=== PATIENT | female | born 1970 | race Caucasian/White ===

== ENCOUNTER 2017-03-10 15:32 | Emergency (ER) | payer MEDICAID ==
[~2017-03-10] VITALS: Ht 157.5 cm; Wt 89.0 kg
[~2017-03-10 15:32] MED LIST: ACET500C5 PO; BISM262O23 PO; CYCL5TAB PO; FIORICET PO; HYDR-906 PO; IBUP400T22 PO; NYST15CR16 TOP; ONDA4TAB14 PO
[2017-03-10 15:52] VITALS: Ht 157.5 cm; Wt 89.0 kg
[2017-03-10] MEDS ORDERED: SOD CHLORIDE 0.9% 1,000 ML IV STA (17:31)
[2017-03-10] MEDS ORDERED: ONDANSETRON 4 MG INJ IV STA (17:31)
[2017-03-10] MEDS ORDERED: morphine 4 MG/ML VIAL IV STA (17:31)
[2017-03-10 18:08] LABS: ADD SCAN DIFF NO
[2017-03-10 18:10] LABS: BASOPHIL # 0.1 10^3/ul (0.0-0.1); BASOPHILS % 0.5 % (0.0-2.0); EOSINOPHILS # 0.1 10^3/ul (0.0-0.5); EOSINOPHILS % 0.8 % (0.0-7.0); HEMATOCRIT 35.7 % (37.0-47.0); HEMOGLOBIN 10.5 g/dl (12.0-16.0); LYMPHOCYTES # 2.1 10^3/ul (0.8-2.9); LYMPHOCYTES % 20.1 % (15.0-51.0); MEAN CORPUSCULAR HEMOGLOBIN 21.7 pg (29.0-33.0); MEAN CORPUSCULAR HGB CONC 29.4 g/dl (32.0-37.0); MEAN CORPUSCULAR VOLUME 73.9 fl (82.0-101.0); MEAN PLATELET VOLUME 9.9 fl (7.4-10.4); MONOCYTE # 0.6 10^3/ul (0.3-0.9); MONOCYTES % 6.2 % (0.0-11.0); NEUTROPHIL # 7.4 10^3/ul (1.6-7.5); NEUTROPHILS % 71.8 % (39.0-77.0); PLATELET COUNT 433 10^3/UL (140-415); RED BLOOD COUNT 4.83 10^6/ul (4.20-5.40); RED CELL DISTRIBUTION WIDTH 16.7 % (11.5-14.5); WHITE BLOOD COUNT 10.3 10^3/ul (4.8-10.8)
[2017-03-10 18:13] LABS: ADD UMIC YES; URINE BILIRUBIN (Dip) NEGATIVE (NEGATIVE); URINE BLOOD (Dip) NEGATIVE (NEGATIVE); URINE COLOR YELLOW (YELLOW); URINE GLUCOSE (Dip) NEGATIVE (NEGATIVE); URINE KETONES (Dip) NEGATIVE (NEGATIVE); URINE LEUKOCYTE ESTERASE (Dip) NEGATIVE (NEGATIVE); URINE NITRITE (Dip) NEGATIVE (NEGATIVE); URINE TOTAL PROTEIN (Dip) TRACE (NEGATIVE); URINE UROBILINOGEN (Dip) 0.2 E.U./dL (0.1-1.0)
[2017-03-10 18:23] LABS: SQUAMOUS EPITHELIAL CELL,UR MANY; URINE RBCS 0-2 /HPF (0)
[2017-03-10 18:24] LABS: BACTERIA,URINE MODERATE
[2017-03-10 18:31] LABS: ALBUMIN 4.7 g/dl (3.3-4.9); ALBUMIN/GLOBULIN RATIO 1.51; BILIRUBIN,INDIRECT 0.2 mg/dl (0-1.1); BILIRUBIN,TOTAL 0.2 mg/dl (0.2-1.3); CREATININE 0.57 mg/dl (0.44-1.00); POTASSIUM 3.9 mmol/L (3.5-5.1); TOTAL PROTEIN 7.8 g/dl (6.1-8.1)
--- NOTE | 2017-03-10 18:36 | ERD ---
ER Documentation Chief Complaint Date/Time DATE: 03/10/17 TIME: 18:35 Chief Complaint EPIGASTRIC PAIN X 3 DAYS HPI This is a 46-year-old female with a history of cholelithiasis presenting to the emergency room complaining of epigastric pain for the past 3 days. Patient states that it is progressively getting worse and she rates it moderate to severe. She states that she has had a couple episodes of vomiting. She denies any diarrhea, fevers, hematemesis. Patient denies any abdominal surgeries. No medications have been taken ROS All systems reviewed and are negative except as per history of present illness. Medications Home Meds Active Scripts Ondansetron (Ondansetron Odt) 4 Mg Tab.rapdis, 4 MG PO Q6H Y for NAUSEA AND/OR VOMITING, #14 TAB Prov:DEEPTI GOMEZ PA-C 03/10/17 Ibuprofen* (Motrin*) 600 Mg Tab, 600 MG PO Q6H Y for PAIN AND OR ELEVATED TEMP, #30 TAB Prov:DEEPTI GOMEZ PA-C 03/10/17 Ondansetron (Ondansetron Odt) 4 Mg Tab.rapdis, 4 MG PO Q8 Y for NAUSEA AND/OR VOMITING, #30 TAB Prov:ZANE FENG NP 08/05/16 Hydrocodone/Acetaminophen (Morrison 5-325 Tablet) 1 Each Tablet, 1 EACH PO Q6, #20 TAB Prov:ZANE FENG NP 08/05/16 Acetamin/Butalbital/Caffeine* (Fioricet*) 1 Tab Tab, 1 TAB PO Q4H Y for PAIN LEVEL 1-5, #30 TAB Prov:IVANA CANAS PA-C 05/08/16 Acetaminophen* (Tylophen*) 500 Mg Capsule, 1 CAP PO Q6H Y for PAIN AND OR ELEVATED TEMP, #20 CAP 0 Refills Prov:ZULEMA CHRISTOPHER PA-C 12/29/15 Ibuprofen* (Motrin*) 400 Mg Tab, 400 MG PO Q6H Y for PAIN AND OR ELEVATED TEMP, #30 TAB 0 Refills Prov:ZULEMA CHRISTOPHER PA-C 12/29/15 Bismuth Subsalicylate* (Pepto-Bismol*) 262 Mg/15 Ml Oral.susp, 30 ML PO Q6H Y for PAIN, #240 ML 0 Refills Prov:ZULEMA CHRISTOPHER PA-C 12/29/15 Nystatin-Triamcinolone* (Nystatin-Triamcinolone* Cream) 15 Gm Cream.gm., 1 APPLIC TOP BID, #1 TUB Prov:CHACORTA MAYER PA-C 11/22/15 Cyclobenzaprine Hcl* (Cyclobenzaprine Hcl*) 5 Mg Tablet, 5 MG PO QHS for 10 Days , TAB Prov:TRUPTI CHRISTIANSON PA-C 08/31/15 Allergies Allergies: Coded Allergies: No Known Allergy (Unverified , 01/26/15) PMhx/Soc History of Surgery: Yes (C-SECTIONx 2) Anesthesia Reaction: No Hx Neurological Disorder: No Hx Respiratory Disorders: No Hx Cardiac Disorders: No Hx Psychiatric Problems: No Hx Alcohol Use: No Hx Substance Use: No Hx Tobacco Use: No Smoking Status: Never smoker Physical Exam Vitals Vital Signs Date Time Temp Pulse Resp B/P Pulse Ox O2 Delivery O2 Flow Rate FiO2 03/10/17 15:52 98.3 99 18 125/75 99 Physical Exam GENERAL: well-developed/well-nourished, in no apparent distress, non-toxic appearing HENT: NC/AT, moist mucous membranes EYES: Conjunctiva normal NECK: Supple, no lymphadenopathy PULM: CTA bilaterally, no rales, rhonchi, or wheezing heard CV: Normal S1S2, RRR, good capillary refill GI: Soft, non-distended, tender to palpation epigastric region Normal bowel sounds, no masses or organomegaly felt on exam No gross peritonitis, no bruits Negative Rovsing, negative Scales, negative McBurney's point, Negative CVAT BACK: No masses EXT: No clubbing, cyanosis, or edema NEURO: Alert and Orientated SKIN: Intact, normal turgor PSYCH: Normal mood and mentation Result Diagram: 03/10/17 1730 03/10/17 1730 Results 24 hrs Laboratory Tests Test 03/10/17 17:30 03/10/17 17:46 White Blood Count 10.310^3/ul Red Blood Count 4.8310^6/ul Hemoglobin 10.5g/dl Hematocrit 35.7% Mean Corpuscular Volume 73.9fl Mean Corpuscular Hemoglobin 21.7pg Mean Corpuscular Hemoglobin Concent 29.4g/dl Red Cell Distribution Width 16.7% Platelet Count 00186^3/UL Mean Platelet Volume 9.9fl Neutrophils % 71.8% Lymphocytes % 20.1% Monocytes % 6.2% Eosinophils % 0.8% Basophils % 0.5% Nucleated Red Blood Cells % 0.0/100WBC Neutrophils # 7.410^3/ul Lymphocytes # 2.110^3/ul Monocytes # 0.610^3/ul Eosinophils # 0.110^3/ul Basophils # 0.110^3/ul Nucleated Red Blood Cells # 0.010^3/ul Sodium Level 140mmol/L Potassium Level 3.9mmol/L Chloride Level 106mmol/L Carbon Dioxide Level 27mmol/L Anion Gap 11 Blood Urea Nitrogen 17mg/dl Creatinine 0.57mg/dl Glucose Level 103mg/dl Calcium Level 9.0mg/dl Total Bilirubin 0.2mg/dl Direct Bilirubin 0.00mg/dl Indirect Bilirubin 0.2mg/dl Aspartate Amino Transf (AST/SGOT) 28IU/L Alanine Aminotransferase (ALT/SGPT) 35IU/L Alkaline Phosphatase 137IU/L Total Protein 7.8g/dl Albumin 4.7g/dl Globulin 3.10g/dl Albumin/Globulin Ratio 1.51 Lipase 85U/L Urine Color YELLOW Urine Clarity SLIGHTLY CLOUDY Urine pH 6.0 Urine Specific [place] 1.025 Urine Ketones NEGATIVE Urine Nitrite NEGATIVE Urine Bilirubin NEGATIVE Urine Urobilinogen 0.2 E.U./dL Urine Leukocyte Esterase NEGATIVE Urine Microscopic RBC 0-2/HPF Urine Microscopic WBC 0-2/HPF Urine Squamous Epithelial Cells MANY Urine Bacteria MODERATE Urine Hemoglobin NEGATIVE Urine Glucose NEGATIVE% Urine Total Protein TRACE Current Medications Medications (Trade) Dose Ordered Sig/Ramonita Route PRN Reason Start Time Stop Time Status Last Admin Dose Admin Sodium Chloride (NS) 1,000 ml @ 1,000 mls/hr Q1H STAT IV 03/10/17 17:31 03/10/17 18:30 DC 03/10/17 17:50 Morphine Sulfate (morphine) 4 mg ONCE STAT IV 03/10/17 17:31 03/10/17 17:32 DC 03/10/17 17:49 Ondansetron HCl (Zofran Inj) 4 mg ONCE STAT IV 03/10/17 17:31 5/30/17 17:32 DC 03/10/17 17:49 Procedures/MDM This is a 46-year-old female with a history of cholelithiasis presenting to the emergency room complaining of epigastric pain, nausea and couple episodes of vomiting for the past 3 days likely due to cholelithiasis and fatty liver. [I doubt patient has sepsis, choledocholithiasis, cholecystitis or cholangitis, pancreatitis or other acute abdomen conditions due to physical examination and diagnostic testing. Patient appears well and nontoxic appearing with stable vital signs. She is able to be discharged home with precautions to return Lab work was drawn. CBC did not show any evidence of leukocytosis or anemia. CMP did not show any evidence of renal, liver, or electrolyte abnormalities. Lipase was normal. UA did not show any evidence of hemoglobin or urinary tract infection. Gallbladder US: 1. Increased echogenicity of the liver is noted and most commonly as a result of fatty infiltration. Steatohepatitis, vacuolar degeneration and cirrhosis of the liver are other causes. 2. Cholelithiasis with gallstones identified in the body and neck of the gallbladder. Diagnostic testing and instructions were given to patient. Pain control and antiemetic prescriptions were provided for outpatient self-care. Discussed with patient to follow-up with primary care for GI referral. Precautions were given to return to the ER for fever, intractable pain, increased vomiting, and other worsening signs and symptoms. Patient expressed agreement and understanding of this plan.] Departure Diagnosis: Primary Impression: Cholelithiasis Cholelithiasis location: gallbladder Cholecystitis presence: without cholecystitis Biliary obstruction: without biliary obstruction Qualified Code : K80.20 - Calculus of gallbladder without cholecystitis without obstruction Additional Impression: Fatty liver Condition: DEEPTI Hernandez PA-C March 10, 2017 18:36
--- NOTE | 2017-03-10 19:07 | RADRPT ---
PROCEDURE: US Abdomen. CLINICAL INDICATION: Abdominal pain. TECHNIQUE: Multiple real-time images were acquired of the patient's abdomen and retroperitoneum ut ilizing a high resolution transducer. COMPARISON: No. FINDINGS: The visible portions of the pancreas are unremarkable but the tail the pancreas is obscured by bowel gas. The liver is echogenic and enlarged measuring 17 cm sagittal. The hepatic and portal veins are hill nt. The gallbladder contains a large gallstone measuring 2.3 cm. There are additional smaller galls tones. The gallbladder wall measures 5.5 mm. The common bile duct measures 3.6 mm. The right kidney measures 10.1 cm in length. There is no evidence of mass or hydronephrosis. IMPRESSION: 1. Increased echogenicity of the liver is noted and most commonly as a result of fatty infiltration. Steatohepatitis, vacuolar degeneration and cirrhosis of the liver are other causes. 2. Cholelithiasis with gallstones identified in the body and neck of the gallbladder. RPTAT:AAJJ Physician Terrence Date Time Electronically viewed and signed by Physician Terrence on 03/10/2017 19:07 KIMBERLEY/
[2017-03-10] MEDS ORDERED: IBUP-1542 PO (19:12)
[2017-03-10] MEDS ORDERED: ONDA4TAB14 PO (19:12)
[2017-03-10] MEDS ORDERED: morphine 10 MG INJ IV ONE (19:30)
[2017-03-10 20:41] VITALS: BP 115/59; PULSE 80; RESP 16
== END 2017-03-10 20:42 | disposition home or self-care (01) ==
LOC: FTE 15:32
DX: K80.20 Calculus of gallbladder without cholecystitis without obstruction (principal); K76.0 Fatty (change of) liver, not elsewhere classified; R11.10 Vomiting, unspecified
CPT/HCPCS: 36415; 76705; 80053; 81001; 83690; 85025; 96374; 96375; 96376; J2270; J2405; J7030; Z7502

== ENCOUNTER 2017-04-17 15:19 | Emergency (ER) | payer SELFPAY ==
[~2017-04-17] VITALS: Ht 154.9 cm; Wt 98.0 kg
[~2017-04-17 15:19] MED LIST changes: +IBUP-1542 PO
[2017-04-17 15:22] VITALS: Ht 154.9 cm; Wt 98.0 kg
[2017-04-17] MEDS ORDERED: SOD CHLORIDE 0.9% 1,000 ML IV STA (15:29)
[2017-04-17] MEDS ORDERED: ONDANSETRON 4 MG INJ IV STA (15:29)
[2017-04-17] MEDS ORDERED: DICYCLOMINE 10 MG CAP PO ONE (15:30)
[2017-04-17 15:56] LABS: ADD SCAN DIFF NO
[2017-04-17 15:57] LABS: ABNORMAL IP MESSAGE 1; BASOPHIL # 0.1 10^3/ul (0.0-0.1); BASOPHILS % 0.9 % (0.0-2.0); EOSINOPHILS # 0.2 10^3/ul (0.0-0.5); EOSINOPHILS % 1.7 % (0.0-7.0); HEMATOCRIT 32.2 % (37.0-47.0); HEMOGLOBIN 9.3 g/dl (12.0-16.0); LYMPHOCYTES # 3.2 10^3/ul (0.8-2.9); LYMPHOCYTES % 34.2 % (15.0-51.0); MEAN CORPUSCULAR HEMOGLOBIN 21.6 pg (29.0-33.0); MEAN CORPUSCULAR HGB CONC 28.9 g/dl (32.0-37.0); MEAN CORPUSCULAR VOLUME 74.9 fl (82.0-101.0); MEAN PLATELET VOLUME 9.5 fl (7.4-10.4); MONOCYTE # 0.7 10^3/ul (0.3-0.9); MONOCYTES % 7.8 % (0.0-11.0); NEUTROPHIL # 5.1 10^3/ul (1.6-7.5); NEUTROPHILS % 54.9 % (39.0-77.0); PLATELET COUNT 411 10^3/UL (140-415); RED CELL DISTRIBUTION WIDTH 20.8 % (11.5-14.5); WHITE BLOOD COUNT 9.3 10^3/ul (4.8-10.8)
[2017-04-17 16:17] LABS: ALBUMIN 4.9 g/dl (3.3-4.9); ALBUMIN/GLOBULIN RATIO 1.63; BILIRUBIN,INDIRECT 0.1 mg/dl (0-1.1); BILIRUBIN,TOTAL 0.1 mg/dl (0.2-1.3); CALCIUM 9.3 mg/dl (8.4-10.2); CREATININE 0.8 mg/dl (0.44-1.00); POTASSIUM 3.9 mmol/L (3.5-5.1); TOTAL PROTEIN 7.9 g/dl (6.1-8.1)
--- NOTE | 2017-04-17 16:17 | RADRPT ---
PROCEDURE: Right Upper Quadrant Ultrasound. CLINICAL INDICATION: Abdominal Pain TECHNIQUE: Multiple real-time images were acquired of the patient's right upper quadrant abdomen a nd retroperitoneum utilizing a high resolution transducer. COMPARISON: Gallbladder ultrasound from 03/10/2017 FINDINGS: The liver measures 14.7 cm, and demonstrates diffuse increased echogenicity. The main portal vein is patent with proper directional flow. There is no intrahepatic biliary ductal dilatation. The extrah epatic common bile duct measures 6 mm. There is cholelithiasis. There is mild nonspecific gallbladder wall thickening which is likely at l east in part due to underdistension. There is no pericholecystic fluid. The pancreas is not visualized. The right kidney measures 11.6 cm and demonstrates normal echotexture. There is no right renal calcu marylu or hydronephrosis. The visualized abdominal aorta and IVC are grossly unremarkable. IMPRESSION: Severe fatty infiltration of the liver. There is cholelithiasis. The gallbladder is contracted which limits evaluation for wall thickening. Acute cholecystitis is considered unlikely. The CBD is top - normal. Clinical correlation is rec ommended. RPTAT: EE Physician Ni Date Time Electronically viewed and signed by Physician Ni on 04/17/2017 16:17 /
[2017-04-17] MEDS ORDERED: morphine 4 MG/ML VIAL IV STA (16:32)
[2017-04-17 17:14] LABS: ADD UMIC NO; UR ASCORBIC ACID NEGATIVE (NEGATIVE); UR BILIRUBIN (Dip) NEGATIVE (NEGATIVE); UR BLOOD (Dip) NEGATIVE (NEGATIVE); UR CLARITY CLEAR (CLEAR); UR COLOR YELLOW (YELLOW); UR GLUCOSE (Dip) NEGATIVE (NEGATIVE); UR KETONES (Dip) NEGATIVE (NEGATIVE); UR LEUKOCYTE ESTERASE (Dip) NEGATIVE Leu/ul (NEGATIVE); UR NITRITE (Dip) NEGATIVE (NEGATIVE); UR SPECIFIC GRAVITY (Dip) 1.018 (1.003-1.030); UR TOTAL PROTEIN (Dip) NEGATIVE (NEGATIVE); UR UROBILINOGEN (Dip) NEGATIVE (NEGATIVE)
[2017-04-17] MEDS ORDERED: HYDR-906 PO (17:41)
--- NOTE | 2017-04-17 18:01 | ERD ---
ER Documentation Chief Complaint Date/Time DATE: 04/17/17 TIME: 17:57 Chief Complaint 07/21 abd pain x today HX of gallstones HPI 46-year-old female patient with a past medical history of fibromyalgia and cholelithiasis presents to the ED complaining of epigastric and right upper quadrant abdominal pain that started 3 days ago. Reports that she was here in February for the same pain. States that she has a headache from the pain of her abdomen. Reports that she has had a few episodes of nonbilious nonbloody vomiting. Patient describes pain as sharp and rates it a 10 out of 10. Denies any diarrhea, chest pain, wheezing, fever, cough, constipation, melena, hemoptysis, hematemesis. States that she has an appointment with her general surgeon on May 05, 2017 for surgical evaluation. ROS All systems reviewed and are negative except as per history of present illness. Medications Home Meds Active Scripts Hydrocodone/Acetaminophen (Tyler 5-325 Tablet) 1 Each Tablet, 1 TAB PO QHS Y for PAIN, #14 TAB Prov:VINNY FITZGERALD PA-C 04/17/17 Ondansetron (Ondansetron Odt) 4 Mg Tab.rapdis, 4 MG PO Q6H Y for NAUSEA AND/OR VOMITING, #14 TAB Prov:DEEPTI GOMEZ PA-C 03/10/17 Ibuprofen* (Motrin*) 600 Mg Tab, 600 MG PO Q6H Y for PAIN AND OR ELEVATED TEMP, #30 TAB Prov:DEEPTI GOMEZ PA-C 03/10/17 Ondansetron (Ondansetron Odt) 4 Mg Tab.rapdis, 4 MG PO Q8 Y for NAUSEA AND/OR VOMITING, #30 TAB Prov:ZANE FENG NP 08/05/16 Hydrocodone/Acetaminophen (Tyler 5-325 Tablet) 1 Each Tablet, 1 EACH PO Q6, #20 TAB Prov:ZANE FENG NP 08/05/16 Acetamin/Butalbital/Caffeine* (Fioricet*) 1 Tab Tab, 1 TAB PO Q4H Y for PAIN LEVEL 1-5, #30 TAB Prov:IVANA CANAS PA-C 05/08/16 Acetaminophen* (Tylophen*) 500 Mg Capsule, 1 CAP PO Q6H Y for PAIN AND OR ELEVATED TEMP, #20 CAP 0 Refills Prov:ZULEMA CHRISTOPHER PA-C 12/29/15 Ibuprofen* (Motrin*) 400 Mg Tab, 400 MG PO Q6H Y for PAIN AND OR ELEVATED TEMP, #30 TAB 0 Refills Prov:ZULEMA CHRISTOPHER PA-C 12/29/15 Bismuth Subsalicylate* (Pepto-Bismol*) 262 Mg/15 Ml Oral.susp, 30 ML PO Q6H Y for PAIN, #240 ML 0 Refills Prov:ZULEMA CHRISTOPHER PA-C 12/29/15 Nystatin-Triamcinolone* (Nystatin-Triamcinolone* Cream) 15 Gm Cream.gm., 1 APPLIC TOP BID, #1 TUB Prov:CHACORTA MAYER PA-C 11/22/15 Cyclobenzaprine Hcl* (Cyclobenzaprine Hcl*) 5 Mg Tablet, 5 MG PO QHS for 10 Days , TAB Prov:TRUPTI CHRISTIANSON PA-C 08/31/15 Allergies Allergies: Coded Allergies: No Known Allergy (Unverified , 04/17/17) PMhx/Soc History of Surgery: Yes (C-SECTIONx 2) Anesthesia Reaction: No Hx Neurological Disorder: No Hx Respiratory Disorders: No Hx Cardiac Disorders: No Hx Psychiatric Problems: No Hx Alcohol Use: No Hx Substance Use: No Hx Tobacco Use: No Smoking Status: Never smoker Physical Exam Vitals Vital Signs Date Time Temp Pulse Resp B/P Pulse Ox O2 Delivery O2 Flow Rate FiO2 04/17/17 15:22 98.6 105 18 131/82 99 Physical Exam Const: [id number], well-nourished. In no acute distress. Head: Atraumatic, normocephalic Eyes: Normal Conjunctiva without injection. No purulent discharge. ENT: Normal external ear, nose. Moist oropharynx without tonsillar exudates. Non -erythematous pharynx. Uvula midline. No drooling. No trismus. Neck: No cervical midline tenderness. Full range of motion. No meningismus. No cervical lymphadenopathy. No JVD. Resp: Clear to auscultation bilaterally. No wheezing, rhonchi, rales, or crackles. No accessory muscle use. No retractions. Cardio: Regular rate and rhythm. No murmurs, rubs or gallops. Abd: Soft, epigastric and right upper quadrant tenderness, non distended. Normal bowel sounds. No palpable masses. No rebound tenderness. No guarding. Negative McBurney's point. Negative psoas sign. Negative obturator sign. Skin: No petechiae or rashes Back: No midline tenderness. No CVA tenderness. Ext: No cyanosis, or edema. Neur: Awake and alert. Normal gait. Normal coordination. Psych: Normal Mood and Affect Results 24 hrs Laboratory Tests Test 04/17/17 15:45 04/17/17 16:55 White Blood Count 9.310^3/ul Red Blood Count 4.3010^6/ul Hemoglobin 9.3g/dl Hematocrit 32.2% Mean Corpuscular Volume 74.9fl Mean Corpuscular Hemoglobin 21.6pg Mean Corpuscular Hemoglobin Concent 28.9g/dl Red Cell Distribution Width 20.8% Platelet Count 00307^3/UL Mean Platelet Volume 9.5fl Neutrophils % 54.9% Lymphocytes % 34.2% Monocytes % 7.8% Eosinophils % 1.7% Basophils % 0.9% Nucleated Red Blood Cells % 0.0/100WBC Neutrophils # 5.110^3/ul Lymphocytes # 3.210^3/ul Monocytes # 0.710^3/ul Eosinophils # 0.210^3/ul Basophils # 0.110^3/ul Nucleated Red Blood Cells # 0.010^3/ul Sodium Level 140mmol/L Potassium Level 3.9mmol/L Chloride Level 105mmol/L Carbon Dioxide Level 24mmol/L Anion Gap 15 Blood Urea Nitrogen 12mg/dl Creatinine 0.80mg/dl Glucose Level 97mg/dl Calcium Level 9.3mg/dl Total Bilirubin 0.1mg/dl Direct Bilirubin 0.00mg/dl Indirect Bilirubin 0.1mg/dl Aspartate Amino Transf (AST/SGOT) 39IU/L Alanine Aminotransferase (ALT/SGPT) 48IU/L Alkaline Phosphatase 139IU/L Total Protein 7.9g/dl Albumin 4.9g/dl Globulin 3.00g/dl Albumin/Globulin Ratio 1.63 Lipase 101U/L Urine Color YELLOW Urine Clarity CLEAR Urine pH 6.0 Urine Specific [place] 1.018 Urine Ketones NEGATIVEmg/dL Urine Nitrite NEGATIVEmg/dL Urine Bilirubin NEGATIVEmg/dL Urine Urobilinogen NEGATIVEmg/dL Urine Leukocyte Esterase NEGATIVELeu/ul Urine Hemoglobin NEGATIVEmg/dL Urine Glucose NEGATIVEmg/dL Urine Total Protein NEGATIVEmg/dl Current Medications Medications (Trade) Dose Ordered Sig/Ramonita Route PRN Reason Start Time Stop Time Status Last Admin Dose Admin Sodium Chloride (NS) 1,000 ml @ 1,000 mls/hr Q1H STAT IV 04/17/17 15:29 04/17/17 16:28 DC 04/17/17 16:15 Ondansetron HCl (Zofran Inj) 4 mg ONCE STAT IV 04/17/17 15:29 04/17/17 15:32 DC 04/17/17 16:16 Dicyclomine HCl (Bentyl) 10 mg ONCE ONCE PO 04/17/17 15:30 04/17/17 15:32 DC 04/17/17 16:16 Morphine Sulfate (morphine) 4 mg ONCE STAT IV 04/17/17 16:32 04/17/17 16:34 DC 04/17/17 17:19 Procedures/MDM This is a 46-year-old female patient with a past medical history fibromyalgia and cholelithiasis presents to the ED complaining of epigastric and right upper quadrant abdominal pain. Patient is afebrile and nontoxic appearing. Patient is in distress due to her pain. Patient was further worked up with CBC, CMP, lipase, UA, urine , gallbladder ultrasound. Patient's pain and symptoms have improved after treatment with 4 mg IV morphine, 1 L normal, 4 mg IV Zofran. CBC: No leukocytosis. No e/o of systemic infection. Hemoglobin is 9.3. Patient has a history of anemia and is currently taking ferrous sulfate. CMP: No e/o severe acidosis, alkalosis, renal failure, diabetic ketoacidosis, liver disease Lipase within normal limits. Urine: No leukocyte esterase, no nitrites, no hematuria. Urine : negative Patient's pain is likely secondary to biliary colic due to gallstones. There is no leukocytosis noted no elevated bilirubin. No transaminitis. There is low suspicion for choledocholithiasis, cholecystitis, cholangitis. Lipase is within normal limits. Low suspicion for pancreatitis. No indication for admission at this time. A differential diagnosis considered includes but is not limited to gastritis, GERD, peptic ulcer disease, cholecystitis, choledocholithiasis, cholangitis, pancreatitis, appendicitis, bowel obstruction , ileus, volvulus, nephrolithiasis, pyelonephritis, hepatitis, perforated viscus , diverticulitis, abdominal hernia, acute abdomen, mesenteric ischemia or other emergent conditions. Discharge medications: Danilo Follow up with primary care physician in 1-2 days for referral to general surgeon for further surgical evaluation. Instructed patient to return to the ED sooner for any worsening symptoms. Patient's questions were answered. Patient understood and agreed with discharge plan. Patient discharged stable. Departure Diagnosis: Primary Impression: Gallstones Condition: Stable Patient Instructions: Biliary Colic With Gallstone (Confirmed) Referrals: [facility] YOU HAVE RECEIVED A MEDICAL SCREENING EXAM AND THE RESULTS INDICATE THAT YOU DO NOT HAVE A CONDITION THAT REQUIRES URGENT TREATMENT IN THE EMERGENCY DEPARTMENT. FURTHER EVALUATION AND TREATMENT OF YOUR CONDITION CAN WAIT UNTIL YOU ARE SEEN IN YOUR DOCTORS OFFICE WITHIN THE NEXT 1-2 DAYS. IT IS YOUR RESPONSIBILITY TO MAKE AN APPOINTMENT FOR FOLOW-UP CARE. IF YOU HAVE A PRIMARY DOCTOR --you should call your primary doctor and schedule an appointment IF YOU DO NOT HAVE A PRIMARY DOCTOR YOU CAN CALL OUR PHYSICIAN REFERRAL HOTLINE AT IF YOU CAN NOT AFFORD TO SEE A PHYSICIAN YOU CAN CHOSE FROM THE FOLLOWING [facility] [address] [facility]. [facility] [address] [facility]. [facility] [address] [facility] [facility] [address] [facility] [facility] [address] [facility]. [facility]. [address] [facility] [place]. [facility] YOU HAVE RECEIVED A MEDICAL SCREENING EXAM AND THE RESULTS INDICATE THAT YOU DO NOT HAVE A CONDITION THAT REQUIRES URGENT TREATMENT IN THE EMERGENCY DEPARTMENT. FURTHER EVALUATION AND TREATMENT OF YOUR CONDITION CAN WAIT UNTIL YOU ARE SEEN IN YOUR DOCTORS OFFICE WITHIN THE NEXT 1-2 DAYS. IT IS YOUR RESPONSIBILITY TO MAKE AN APPOINTMENT FOR FOLOW-UP CARE. IF YOU HAVE A PRIMARY DOCTOR --you should call your primary doctor and schedule and appointment IF YOU DO NOT HAVE A PRIMARY DOCTOR YOU CAN CALL OUR PHYSICIAN REFERRAL HOTLINE AT . IF YOU CAN NOT AFFORD TO SEE A PHYSICIAN YOU CAN CHOSE FROM THE FOLLOWING [facility] INSTITUTIONS: [facility] [address] [place] [address] [facility] [address] [place] [address] [facility] [address] [place] [address] [facility] Additional Instructions: La medicina que se le recet puede causarle sueo.NO DEBE MANEJAR NI OPERAR MAQUINARIAS PELIGROSAS mientras esta tomando esta medicina! Llame al doctor kiana dyllan [place] PARA DENTRO DE 2-3 OLIVARES.Dgale a la secretaria que nosotros le instruimos hacer esta [place] para un referido a un cirujano general para mayor cuidado y el tratamiento.Avise o llame si polanco condicin se empeora antes de la [place]. Regresa aqui si peor o no mejor. VINNY FITZGERALD PA-C Apr 17, 2017 18:00 general para mayor cuidado y el tratamiento.Avise o llame si polanco condicin se empeora antes de la [place]. Regresa aqui si peor o no mejor. VINNY FITZGERALD PA-C Apr 17, 2017 18:00
[2017-04-17 18:09] VITALS: BP 134/62; PULSE 87; RESP 20; TEMP 98.3
== END 2017-04-17 18:10 | disposition home or self-care (01) ==
LOC: FTE 15:19
DX: K80.20 Calculus of gallbladder without cholecystitis without obstruction (principal)
CPT/HCPCS: 76705; 80053; 81003; 83690; 85025; J2270; J2405; J7030; 36415; 96374; 96375

== ENCOUNTER 2017-05-12 14:59 | Emergency (ER) | payer MEDICAID, OTHER ==
[~2017-05-12] VITALS: Ht 162.6 cm; Wt 80.0 kg
[2017-05-12 15:00] VITALS: Ht 162.6 cm; Wt 80.0 kg
[2017-05-12] MEDS ORDERED: HYDROmorphONE 1 MG/ML SYG IV STA ×2 (15:57→17:49)
[2017-05-12] MEDS ORDERED: ONDANSETRON 4 MG INJ IV STA ×2 (15:57→17:49)
--- NOTE | 2017-05-12 16:26 | RADRPT ---
PROCEDURE: Abdominal Ultrasound (right upper quadrant). CLINICAL INDICATION: Abdominal pain TECHNIQUE: Multiple real-time longitudinal and transverse images of the right upper quadrant of th e abdomen were acquired utilizing a curved array transducer. Images were reviewed on a high-resoluti on PACS workstation. COMPARISON: None FINDINGS: The liver demonstrates increased echogenicity consistent with fatty infiltration. The liver is norm al in size. No focal masses are identified. There is no evidence of intra or extrahepatic ductal d ilatation. The common bile duct measures 4.0 mm in diameter. Gallstones are identified within the g allbladder. There is no gallbladder wall thickening. The visualized portions of the pancreas are unremarkable with obscuration of the tail of the pancrea s. No free fluid is identified. There is no evidence of right hydronephrosis or renal calcification. The right kidney measures 10.7 cm in length. The visualized portions of the aorta and inferior vena cava are within normal limits. IMPRESSION: 1. Fatty infiltration of the liver. 2. Cholelithiasis. RPTAT: KK .Duong Chamorro MD, Date Time Electronically viewed and signed by .Duong Chamorro MD, MD on 05/12/2017 16:25 .B/
[2017-05-12 17:13] LABS: BASOPHIL # 0.1 10^3/ul (0.0-0.1); BASOPHILS % 1.3 % (0.0-2.0); EOSINOPHILS # 0.1 10^3/ul (0.0-0.5); HEMATOCRIT 34.4 % (37.0-47.0); HEMOGLOBIN 10.3 g/dl (12.0-16.0); LYMPHOCYTES # 2.5 10^3/ul (0.8-2.9); MEAN CORPUSCULAR HEMOGLOBIN 23.1 pg (29.0-33.0); MEAN CORPUSCULAR HGB CONC 29.9 g/dl (32.0-37.0); MEAN CORPUSCULAR VOLUME 77.3 fl (82.0-101.0); MEAN PLATELET VOLUME 10.5 fl (7.4-10.4); MONOCYTE # 0.6 10^3/ul (0.3-0.9); NEUTROPHIL # 5.3 10^3/ul (1.6-7.5); NEUTROPHILS % 61.1 % (39.0-77.0); PLATELET COUNT 408 10^3/UL (140-415); RED BLOOD COUNT 4.45 10^6/ul (4.20-5.40); RED CELL DISTRIBUTION WIDTH 20.7 % (11.5-14.5); WHITE BLOOD COUNT 8.7 10^3/ul (4.8-10.8)
[2017-05-12 17:30] LABS: ALBUMIN 4.3 g/dl (3.3-4.9); ALBUMIN/GLOBULIN RATIO 1.34; BILIRUBIN,INDIRECT 0.1 mg/dl (0-1.1); BILIRUBIN,TOTAL 0.1 mg/dl (0.2-1.3); CALCIUM 8.9 mg/dl (8.4-10.2); CREATININE 0.57 mg/dl (0.44-1.00); POTASSIUM 4.1 mmol/L (3.5-5.1); TOTAL PROTEIN 7.5 g/dl (6.1-8.1)
[2017-05-12] MEDS ORDERED: HYDR-902 PO (18:19)
[2017-05-12] MEDS ORDERED: ONDA4TAB14 PO (18:19)
[2017-05-12] MEDS ORDERED: DICY10CA60 PO (18:19)
--- NOTE | 2017-05-12 18:28 | ERD ---
ER Documentation Chief Complaint Date/Time DATE: 05/12/17 TIME: 18:26 Chief Complaint ap, hx gallstones HPI This is a 46-year-old female with a history of gallstones complaining of a gallbladder attack. She is complaining of pain in the epigastric and right upper quadrant radiating to the right back consistent with prior attacks. Pain is described as crampy. The pain began last night. The pain is worse after food. There is nausea no vomiting no diarrhea no chest pain or shortness of breath. ROS All systems reviewed and are negative except as per history of present illness. Medications Home Meds Active Scripts Dicyclomine Hcl* (Bentyl*) 10 Mg Capsule, 20 MG PO QID, #60 CAP Prov:VINCE MCKINLEYS A. DO 05/12/17 Ondansetron (Ondansetron Odt) 4 Mg Tab.rapdis, 4 MG PO Q6H Y for NAUSEA AND/OR VOMITING, #10 TAB Prov:ANA MCKINLEYSTOLOS A. DO 05/12/17 Hydrocodone/Acetaminophen ([place] 10-325 Tablet) 1 Each Tablet, 1 TAB PO Q6H Y for PAIN, #20 TAB Prov:LEKKOS,APOSTOLOS A. DO 05/12/17 Hydrocodone/Acetaminophen ([place] 5-325 Tablet) 1 Each Tablet, 1 TAB PO QHS Y for PAIN, #14 TAB Prov:VINNY FITZGERALD PA-C 04/17/17 Ondansetron (Ondansetron Odt) 4 Mg Tab.rapdis, 4 MG PO Q6H Y for NAUSEA AND/OR VOMITING, #14 TAB Prov:DEEPTI GOMEZ PA-C 03/10/17 Ibuprofen* (Motrin*) 600 Mg Tab, 600 MG PO Q6H Y for PAIN AND OR ELEVATED TEMP, #30 TAB Prov:DEEPTI GOMEZ PA-C 03/10/17 Ondansetron (Ondansetron Odt) 4 Mg Tab.rapdis, 4 MG PO Q8 Y for NAUSEA AND/OR VOMITING, #30 TAB Prov:ZANE FENG NP 08/05/16 Hydrocodone/Acetaminophen ([place] 5-325 Tablet) 1 Each Tablet, 1 EACH PO Q6, #20 TAB Prov:ZANE FENG NEW PATIENT ESCORT 08/05/16 Acetamin/Butalbital/Caffeine* (Fioricet*) 1 Tab Tab, 1 TAB PO Q4H Y for PAIN LEVEL 1-5, #30 TAB Prov:IVANA CANAS PA-C 05/08/16 Acetaminophen* (Tylophen*) 500 Mg Capsule, 1 CAP PO Q6H Y for PAIN AND OR ELEVATED TEMP, #20 CAP 0 Refills Prov:ZULEMA CHRISTOPHER PA-C 12/29/15 Ibuprofen* (Motrin*) 400 Mg Tab, 400 MG PO Q6H Y for PAIN AND OR ELEVATED TEMP, #30 TAB 0 Refills Prov:ZULEMA CHRISTOPHER PA-C 12/29/15 Bismuth Subsalicylate* (Pepto-Bismol*) 262 Mg/15 Ml Oral.susp, 30 ML PO Q6H Y for PAIN, #240 ML 0 Refills Prov:ZULEMA CHRISTOPHER PA-C 12/29/15 Nystatin-Triamcinolone* (Nystatin-Triamcinolone* Cream) 15 Gm Cream.gm., 1 APPLIC TOP BID, #1 TUB Prov:CHACORTA MAYER PA-C 11/22/15 Cyclobenzaprine Hcl* (Cyclobenzaprine Hcl*) 5 Mg Tablet, 5 MG PO QHS for 10 Days , TAB Prov:TRUPTI CHRISTIANSON PA-C 08/31/15 Allergies Allergies: Coded Allergies: No Known Allergy (Unverified , 04/17/17) PMhx/Soc History of Surgery: Yes (C-SECTIONx 2) Anesthesia Reaction: No Hx Neurological Disorder: No Hx Respiratory Disorders: No Hx Cardiac Disorders: No Hx Psychiatric Problems: No Hx Miscellaneous Medical Probl: Yes (GERD, FIBROMYALGIA, kidney stone, gallstones) Hx Alcohol Use: No Hx Substance Use: No Hx Tobacco Use: No FmHx Family History: No coronary disease Physical Exam Vitals Vital Signs Date Time Temp Pulse Resp B/P Pulse Ox O2 Delivery O2 Flow Rate FiO2 05/12/17 15:00 98.5 90 18 146/77 99 Physical Exam Const: [Well-developed, well-nourished] Head: [Atraumatic, normocephalic] Eyes: [Normal Conjunctiva, PERRLA, EOMI, normal sclera, no nystagmus] ENT: [Normal External Ears, Nose and Mouth, moist mucus membranes.] Neck: [Full range of motion. No meningismus, no lymphadenopathy.] Resp: [Clear to auscultation bilaterally, no wheezing, rhonchi, rales] Cardio: [Regular rate and rhythm, no murmurs, S1 S2 present] Abd: [Soft, epigastric and right upper quadrant tenderness non distended. Normal bowel sounds, no guarding or rebound, no pulsitile abdominal masses or bruits] Skin: [No petechiae or rashes, no ecchymosis , no maculopapular rash] Back: [No midline or flank tenderness] Ext: [No cyanosis, or edema, FROM x 4, normal inspection, neurovascularly intact x 4] Neur: [Awake and alert, STR 5/5 x 4, sensation intact x 4, no focal findings, cerebellum intact] Psych: [Normal Mood and Affect] Result Diagram: 05/12/17 1649 05/12/17 1649 Results 24 hrs Laboratory Tests Test 05/12/17 16:49 White Blood Count 8.710^3/ul Red Blood Count 4.4510^6/ul Hemoglobin 10.3g/dl Hematocrit 34.4% Mean Corpuscular Volume 77.3fl Mean Corpuscular Hemoglobin 23.1pg Mean Corpuscular Hemoglobin Concent 29.9g/dl Red Cell Distribution Width 20.7% Platelet Count 39957^3/UL Mean Platelet Volume 10.5fl Neutrophils % 61.1% Lymphocytes % 29.0% Monocytes % 7.0% Eosinophils % 1.0% Basophils % 1.3% Nucleated Red Blood Cells % 0.0/100WBC Neutrophils # 5.310^3/ul Lymphocytes # 2.510^3/ul Monocytes # 0.610^3/ul Eosinophils # 0.110^3/ul Basophils # 0.110^3/ul Nucleated Red Blood Cells # 0.010^3/ul Sodium Level 141mmol/L Potassium Level 4.1mmol/L Chloride Level 104mmol/L Carbon Dioxide Level 24mmol/L Anion Gap 17 Blood Urea Nitrogen 9mg/dl Creatinine 0.57mg/dl Glucose Level 89mg/dl Calcium Level 8.9mg/dl Total Bilirubin 0.1mg/dl Direct Bilirubin 0.00mg/dl Indirect Bilirubin 0.1mg/dl Aspartate Amino Transf (AST/SGOT) 35IU/L Alanine Aminotransferase (ALT/SGPT) 34IU/L Alkaline Phosphatase 153IU/L Total Protein 7.5g/dl Albumin 4.3g/dl Globulin 3.20g/dl Albumin/Globulin Ratio 1.34 Lipase 66U/L Current Medications Medications (Trade) Dose Ordered Sig/Ramonita Route PRN Reason Start Time Stop Time Status Last Admin Dose Admin Hydromorphone HCl (Dilaudid) 1 mg ONCE STAT IV 05/12/17 15:57 05/12/17 15:59 DC 05/12/17 15:57 Ondansetron HCl (Zofran Inj) 4 mg ONCE STAT IV 05/12/17 15:57 05/12/17 15:59 DC 05/12/17 15:57 Hydromorphone HCl (Dilaudid) 1 mg ONCE STAT IV 05/12/17 17:49 05/12/17 17:50 DC 05/12/17 18:00 Ondansetron HCl (Zofran Inj) 4 mg ONCE STAT IV 05/12/17 17:49 05/12/17 17:50 DC 05/12/17 18:01 Procedures/MDM ROCEDURE: Abdominal Ultrasound (right upper quadrant). CLINICAL INDICATION: Abdominal pain TECHNIQUE: Multiple real-time longitudinal and transverse images of the right upper quadrant of the abdomen were acquired utilizing a curved array transducer. Images were reviewed on a high-resolution PACS workstation. COMPARISON: None FINDINGS: The liver demonstrates increased echogenicity consistent with fatty infiltration. The liver is normal in size. No focal masses are identified. There is no evidence of intra or extrahepatic ductal dilatation. The common bile duct measures 4.0 mm in diameter. Gallstones are identified within the gallbladder. There is no gallbladder wall thickening. The visualized portions of the pancreas are unremarkable with obscuration of the tail of the pancreas. No free fluid is identified. There is no evidence of right hydronephrosis or renal calcification. The right kidney measures 10.7 cm in length. The visualized portions of the aorta and inferior vena cava are within normal limits. IMPRESSION: 1. Fatty infiltration of the liver. 2. Cholelithiasis. RPTAT: KK .Duong Chamorro MD, Date Time Electronically viewed and signed by .Duong Chamorro MD, on 2016 16:25 .B/ CC: BRYANNA MCKINLEY DO Patient is feeling better. We will discharge home on Rowan Bentyl and Zofran. She will need to follow-up with her primary get surgical referral and avoid fatty food Departure Diagnosis: Primary Impression: Gallstones Condition: Stable Patient Instructions: Gallstones BRYANNA MCKINLEY DO May 12, 2017 18:28
== END 2017-05-12 18:54 | disposition home or self-care (01) ==
LOC: FTE 14:59
DX: K80.20 Calculus of gallbladder without cholecystitis without obstruction (principal); R11.0 Nausea
CPT/HCPCS: 36415; 76705; 80053; 83690; 85025; 96374; 96375; 96376; J1170; J2405; Z7502

== ENCOUNTER 2017-06-28 23:33 | Inpatient (IN) | payer MEDICAID ==
[~2017-06-28] VITALS: Ht 152.4 cm; Wt 96.5 kg
[~2017-06-28 23:33] MED LIST changes: +DICY10CA60 PO; +HYDR-902 PO
[2017-06-29] MEDS ORDERED: SOD CHLORIDE 0.9% 1,000 ML IV STA (03:07)
[2017-06-29] MEDS ORDERED: ONDANSETRON 4 MG INJ IV STA (03:07)
[2017-06-29] MEDS ORDERED: morphine 4 MG/ML VIAL IV STA ×2 (03:07→05:38)
[2017-06-29] MEDS ORDERED: ACETAMINOPHEN 325 MG TAB PO ONE (03:30)
--- NOTE | 2017-06-29 03:31 | ERD ---
ER Documentation Chief Complaint Date/Time DATE: 06/29/17 TIME: 03:29 Chief Complaint bilateral back pain for a month, l side radiates down leg HPI 46-year-old female emergency department for staple complaints. Patient is complaining of bilateral lower back pain, more on the left back area, it radiates to the left lower leg, sharp pain, 6/10 scale, is worse upon movement. Patient also is complaining of some redness and blisters on the right flank area , she noticed that yesterday, burning pain for/and scale, is worse upon touching the area. Patient also is complaining of right upper quadrant abdominal pain, sharp pain, 8/10 scale, radiating to the back, patient was diagnosed to have gallbladder stones one month ago. Patient states that it is the same type of pain in the right upper quadrant but got worse today. Patient started to have fever today. ROS All systems reviewed and are negative except as per history of present illness. Medications Home Meds Active Scripts Dicyclomine Hcl* (Bentyl*) 10 Mg Capsule, 20 MG PO QID, #60 CAP Prov:BRYANNA MCKINLEY. DO 05/12/17 Ondansetron (Ondansetron Odt) 4 Mg Tab.rapdis, 4 MG PO Q6H Y for NAUSEA AND/OR VOMITING, #10 TAB Prov:ANA MCKINLEYSTPAIGES A. DO 05/12/17 Hydrocodone/Acetaminophen ([place] 10-325 Tablet) 1 Each Tablet, 1 TAB PO Q6H Y for PAIN, #20 TAB Prov:ANA MCKINLEYSTPAIGES A. DO 05/12/17 Hydrocodone/Acetaminophen ([place] 5-325 Tablet) 1 Each Tablet, 1 TAB PO QHS Y for PAIN, #14 TAB Prov:VINNY FITZGERALD PA-C 04/17/17 Ondansetron (Ondansetron Odt) 4 Mg Tab.rapdis, 4 MG PO Q6H Y for NAUSEA AND/OR VOMITING, #14 TAB Prov:DEEPTI GOMEZ PA-C 03/10/17 Ibuprofen* (Motrin*) 600 Mg Tab, 600 MG PO Q6H Y for PAIN AND OR ELEVATED TEMP, #30 TAB Prov:DEEPTI GOMEZ PA-C 03/10/17 Ondansetron (Ondansetron Odt) 4 Mg Tab.rapdis, 4 MG PO Q8 Y for NAUSEA AND/OR VOMITING, #30 TAB Prov:ZANE FENG NP 08/05/16 Hydrocodone/Acetaminophen ([place] 5-325 Tablet) 1 Each Tablet, 1 EACH PO Q6, #20 TAB Prov:ZANE FENG NP 08/05/16 Acetamin/Butalbital/Caffeine* (Fioricet*) 1 Tab Tab, 1 TAB PO Q4H Y for PAIN LEVEL 1-5, #30 TAB Prov:IVANA CANAS PA-C 05/08/16 Acetaminophen* (Tylophen*) 500 Mg Capsule, 1 CAP PO Q6H Y for PAIN AND OR ELEVATED TEMP, #20 CAP 0 Refills Prov:ZULEMA CHRISTOPHER PA-C 12/29/15 Ibuprofen* (Motrin*) 400 Mg Tab, 400 MG PO Q6H Y for PAIN AND OR ELEVATED TEMP, #30 TAB 0 Refills Prov:ZULEMA CHRISTOPHER PA-C 12/29/15 Bismuth Subsalicylate* (Pepto-Bismol*) 262 Mg/15 Ml Oral.susp, 30 ML PO Q6H Y for PAIN, #240 ML 0 Refills Prov:ZULEMA CHRISTOPHER PA-C 12/29/15 Nystatin-Triamcinolone* (Nystatin-Triamcinolone* Cream) 15 Gm Cream.gm., 1 APPLIC TOP BID, #1 TUB Prov:CHACORTA MAYER PA-C 11/22/15 Cyclobenzaprine Hcl* (Cyclobenzaprine Hcl*) 5 Mg Tablet, 5 MG PO QHS for 10 Days , TAB Prov:TRUPTI CHRISTIANSON PA-C 08/31/15 Allergies Allergies: Coded Allergies: No Known Allergy (Unverified , 04/17/17) PMhx/Soc History of Surgery: Yes (C-SECTIONx 2) Anesthesia Reaction: No Hx Neurological Disorder: No Hx Respiratory Disorders: No Hx Cardiac Disorders: No Hx Psychiatric Problems: No Hx Miscellaneous Medical Probl: Yes (GERD, FIBROMYALGIA, kidney stone, gallstones) Hx Alcohol Use: No Hx Substance Use: No Hx Tobacco Use: No Smoking Status: Never smoker FmHx Family History: No coronary disease, No diabetes, No other Physical Exam Vitals Vital Signs Date Time Temp Pulse Resp B/P Pulse Ox O2 Delivery O2 Flow Rate FiO2 06/28/17 23:38 101.1 109 18 155/81 100 Physical Exam GENERAL: The patient is well developed and appropriate for usual state of health, in no apparent distress. CHEST: Clear to auscultation bilaterally. There are no rales, wheezes or rhonchi. HEART: Regular rate and rhythm. No murmurs, clicks, rubs or gallops. No S3 or S4. ABDOMEN: Soft, nontender and nondistended. Good bowel sounds. No rebound or guarding. No gross peritonitis. No gross organomegaly or masses. No Scales sign or McBurney point tenderness. BACK: No midline or flank tenderness. EXTREMITIES: Equal pulses bilaterally. There is no peripheral clubbing, cyanosis or edema. No focal swelling or erythema. Full range of motion. Grossly neurovascularly intact. NEURO: Alert and oriented. Cranial nerves 2-12 intact. Motor strength in all 4 extremities with 5/5 strength. Sensation grossly intact. Normal speech and gait. SKIN: Noted erythematous blister wounds on right foot, tender on palpation. There is no apparent petechia. The skin is warm and dry. HEMATOLOGIC AND LYMPHATIC: There is no evidence of excessive bruising or lymphedema. No gross cervical, axillary, or inguinal lymphadenopathy. Result Diagram: 06/29/17 0355 06/29/17 0355 Results 24 hrs Laboratory Tests Test 06/29/17 03:00 06/29/17 03:55 Urine Color YELLOW Urine Clarity SLIGHTLY CLOUDY Urine pH 8.0 Urine Specific [place] 1.017 Urine Ketones NEGATIVEmg/dL Urine Nitrite NEGATIVEmg/dL Urine Bilirubin NEGATIVEmg/dL Urine Urobilinogen NEGATIVEmg/dL Urine Leukocyte Esterase NEGATIVELeu/ul Urine Microscopic RBC 1/HPF Urine Microscopic WBC 0/HPF Urine Squamous Epithelial Cells FEW/HPF Urine Amorphous Crystals MODERATE/HPF Urine Bacteria FEW/HPF Urine Hemoglobin 2+mg/dL Urine Glucose NEGATIVEmg/dL Urine Total Protein NEGATIVEmg/dl Urine Test NEGATIVE White Blood Count 18.810^3/ul Red Blood Count 4.2810^6/ul Hemoglobin 10.0g/dl Hematocrit 33.5% Mean Corpuscular Volume 78.3fl Mean Corpuscular Hemoglobin 23.4pg Mean Corpuscular Hemoglobin Concent 29.9g/dl Red Cell Distribution Width 18.0% Platelet Count 33098^3/UL Mean Platelet Volume 10.8fl Neutrophils % 76.7% Lymphocytes % 15.4% Monocytes % 6.3% Eosinophils % 0.6% Basophils % 0.5% Nucleated Red Blood Cells % 0.0/100WBC Neutrophils # 14.410^3/ul Lymphocytes # 2.910^3/ul Monocytes # 1.210^3/ul Eosinophils # 0.110^3/ul Basophils # 0.110^3/ul Nucleated Red Blood Cells # 0.010^3/ul Sodium Level 140mmol/L Potassium Level 4.2mmol/L Chloride Level 105mmol/L Carbon Dioxide Level 26mmol/L Anion Gap 13 Blood Urea Nitrogen 14mg/dl Creatinine 0.66mg/dl Glucose Level 111mg/dl Lactic Acid Level 1.4mmol/L Calcium Level 9.2mg/dl Total Bilirubin 0.0mg/dl Direct Bilirubin 0.00mg/dl Indirect Bilirubin 0.0mg/dl Aspartate Amino Transf (AST/SGOT) 40IU/L Alanine Aminotransferase (ALT/SGPT) 50IU/L Alkaline Phosphatase 161IU/L Total Protein 7.4g/dl Albumin 4.0g/dl Globulin 3.40g/dl Albumin/Globulin Ratio 1.17 Lipase 109U/L Current Medications Medications (Trade) Dose Ordered Sig/Ramonita Route PRN Reason Start Time Stop Time Status Last Admin Dose Admin Sodium Chloride (NS) 1,000 ml @ 1,000 mls/hr Q1H STAT IV 06/29/17 03:07 06/29/17 04:06 DC 06/29/17 04:10 Morphine Sulfate (morphine) 4 mg ONCE STAT IV 06/29/17 03:07 06/29/17 03:08 DC 06/29/17 04:06 Ondansetron HCl (Zofran Inj) 4 mg ONCE STAT IV 06/29/17 03:07 06/29/17 03:08 DC 06/29/17 04:04 Acetaminophen 650 mg 650 mg ONCE ONCE PO 06/29/17 03:30 06/29/17 03:31 DC 06/29/17 04:03 Sodium Chloride (NS) 100 ml @ [facility]-MED ONCE .ROUTE 9/18/17 04:28 06/29/17 04:29 DC 06/29/17 05:03 Iohexol (Omnipaque 300mg/ ml) 150 ml STK-MED ONCE .ROUTE 06/29/17 04:28 06/29/17 04:29 DC 06/29/17 05:02 Patient was given medicines for fever control here in the emergency department. After treatment, patient temperature improved and lower. Patient appears well and is hemodynamically stable. Patient was given medication for pain here in emergency department, after treatment, patient verbalized feeling much better. Patient's pain is improved.Patient was given Zofran here in the emergency department. After treatment, patient was able to tolerate po fluids here in the emergency department without any vomiting. There is no signs and symptoms of dehydration. Normal saline IV bolus was given here in emergency department for rehydration, patient tolerated IV fluids. PROCEDURE: US Abdomen (right upper quadrant). CLINICAL INDICATION: Right upper quadrant pain TECHNIQUE: Multiple real-time longitudinal and transverse images of the right upper quadrant of the abdomen were acquired utilizing a curved array transducer. Images were reviewed on a high-resolution PACS workstation. COMPARISON: 05/12/2017 FINDINGS: The liver is enlarged and increase in echogenicity without focal mass or intrahepatic biliary dilatation. The liver measures 18 cm in length. Normal flow is demonstrated in the main portal vein. Gallstones are seen. There is no pericholecystic fluid or gallbladder wall thickening . No intra or extrahepatic biliary dilatation is seen. The common bile duct measures 3.6 mm in maximal dimension. The visualized portions of the pancreas are unremarkable with obscuration of the tail of the pancreas. No free fluid is identified. The right kidney measures 10.3 cm in length. There is normal echogenicity within the right kidney. There is no perinephric fluid collection. No hydronephrosis, mass, or calculus is seen. IMPRESSION: 1. Fatty infiltration of the liver. 2. Cholelithiasis. No evidence of acute cholecystitis. 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 Jara, considering patient has intractable back pain after pain medication given and has elevation of WBC and fever, patient will be admitted to the hospital for further management and treatment. Possible surgical evaluation of the gallbladder stones. Disclaimer: Inadvertent spelling and grammatical errors are likely due to EHR/ dictation software use and do not reflect on the overall quality of patient care. Also, please note that the electronic time recorded on this note does not necessarily reflect the actual time of the patient encounter. Departure Diagnosis: Primary Impression: Fever Fever type: unspecified Qualified Code: R50.9 - Fever, unspecified fever cause Additional Impressions: Cholelithiasis Cholelithiasis location: other site Biliary obstruction: without biliary obstruction Qualified Code: K80.80 - Biliary calculus of other site without obstruction Intractable back pain Condition: Fair ZANE FENG NP Jun 29, 2017 03:31 Departure Diagnosis: Primary Impression: Back pain Back pain location: low back pain Chronicity: acute Back pain laterality: bilateral Sciatica presence: without sciatica Qualified Code: M54.5 - Acute bilateral low back pain without sciatica Additional Impressions: Biliary colic Infected blister Condition: Stable ZANE FENG NP Jun 29, 2017 03:31
[2017-06-29 04:10] LABS: ADD UMIC YES; UR AMORPHOUS CRYSTAL MODERATE /HPF (NONE SEEN); UR ASCORBIC ACID NEGATIVE (NEGATIVE); UR BACTERIA FEW /HPF (NONE SEEN); UR BILIRUBIN (Dip) NEGATIVE (NEGATIVE); UR BLOOD (Dip) 2+ mg/dL (NEGATIVE); UR CLARITY SLIGHTLY CLOUDY (CLEAR); UR COLOR YELLOW (YELLOW); UR GLUCOSE (Dip) NEGATIVE (NEGATIVE); UR KETONES (Dip) NEGATIVE (NEGATIVE); UR LEUKOCYTE ESTERASE (Dip) NEGATIVE Leu/ul (NEGATIVE); UR NITRITE (Dip) NEGATIVE (NEGATIVE); UR RBC 1 /HPF (0-5); UR SPECIFIC GRAVITY (Dip) 1.017 (1.003-1.030); UR SQUAMOUS EPITHELIAL CELL FEW /HPF (FEW); UR TOTAL PROTEIN (Dip) NEGATIVE (NEGATIVE); UR UROBILINOGEN (Dip) NEGATIVE (NEGATIVE)
--- NOTE | 2017-06-29 04:17 | RADRPT ---
PROCEDURE: US Abdomen (right upper quadrant). CLINICAL INDICATION: Right upper quadrant pain TECHNIQUE: Multiple real-time longitudinal and transverse images of the right upper quadrant of th e abdomen were acquired utilizing a curved array transducer. Images were reviewed on a high-resoluti on PACS workstation. COMPARISON: 05/12/2017 FINDINGS: The liver is enlarged and increase in echogenicity without focal mass or intrahepatic biliary dilata tion. The liver measures 18 cm in length. Normal flow is demonstrated in the main portal vein. Galls tones are seen. There is no pericholecystic fluid or gallbladder wall thickening . No intra or ext rahepatic biliary dilatation is seen. The common bile duct measures 3.6 mm in maximal dimension. T he visualized portions of the pancreas are unremarkable with obscuration of the tail of the pancreas . No free fluid is identified. The right kidney measures 10.3 cm in length. There is normal echogenicity within the right kidney. There is no perinephric fluid collection. No hydronephrosis, mass, or calculus is seen. IMPRESSION: 1. Fatty infiltration of the liver. 2. Cholelithiasis. No evidence of acute cholecystitis. Physician Jaci Date Time Electronically viewed and signed by Physician Jaci on 06/29/2017 04:16 KEENA/
[2017-06-29] MEDS ORDERED: IOHEXOL 300MG/ML 150 ML BTL ONE (04:28)
[2017-06-29] MEDS ORDERED: SOD CHLORIDE 0.9% 100 ML ONE (04:28)
[2017-06-29 04:30] LABS: BASOPHIL # 0.1 10^3/ul (0.0-0.1); BASOPHILS % 0.5 % (0.0-2.0); EOSINOPHILS # 0.1 10^3/ul (0.0-0.5); EOSINOPHILS % 0.6 % (0.0-7.0); HEMATOCRIT 33.5 % (37.0-47.0); LYMPHOCYTES # 2.9 10^3/ul (0.8-2.9); LYMPHOCYTES % 15.4 % (15.0-51.0); MEAN CORPUSCULAR HEMOGLOBIN 23.4 pg (29.0-33.0); MEAN CORPUSCULAR HGB CONC 29.9 g/dl (32.0-37.0); MEAN CORPUSCULAR VOLUME 78.3 fl (82.0-101.0); MEAN PLATELET VOLUME 10.8 fl (7.4-10.4); MONOCYTE # 1.2 10^3/ul (0.3-0.9); MONOCYTES % 6.3 % (0.0-11.0); NEUTROPHIL # 14.4 10^3/ul (1.6-7.5); NEUTROPHILS % 76.7 % (39.0-77.0); PLATELET COUNT 392 10^3/UL (140-415); RED BLOOD COUNT 4.28 10^6/ul (4.20-5.40); WHITE BLOOD COUNT 18.8 10^3/ul (4.8-10.8)
[2017-06-29 04:49] LABS: ALBUMIN/GLOBULIN RATIO 1.17; CALCIUM 9.2 mg/dl (8.4-10.2); CREATININE 0.66 mg/dl (0.44-1.00); POTASSIUM 4.2 mmol/L (3.5-5.1); TOTAL PROTEIN 7.4 g/dl (6.1-8.1)
--- NOTE | 2017-06-29 05:10 | RADRPT ---
PROCEDURE: CT Abdomen and Pelvis with contrast. CLINICAL INDICATION: Abdominal pain. TECHNIQUE: CT scan of the abdomen and pelvis with contrast was performed utilizing axial tomograph ic images from the domes the diaphragm to the symphysis pubis. The patient was scanned post uncomp licated intravenous administration of 100 cc of Omnipaque-300. Coronal and sagittal reformatted hilton ges were obtained from the axial source images. Images were reviewed on a high-resolution PACS works tation. The total exam CTDI equals 22.92 mGy and the total exam DLP equals 1423.68 mGy-cm. One or m ore of the following dose reduction techniques were used: Automated exposure control, adjustment of the mA and / or kV according to patient size, or use of iterative reconstruction technique. COMPARISON: CT abdomen and pelvis dated 01/26/2015 FINDINGS: The lung bases are clear . The liver is normal in size and contour. The liver parenchyma demonstr ates diffuse hypoattenuation. No focal intrahepatic masses are identified. There is no intra or ext rahepatic biliary dilatation. The gallbladder contains stones. The spleen, pancreas, and adrenal g lands are unremarkable. The kidneys are symmetric in size and demonstrate normal enhancement. No hydronephrosis or hydroure ter is seen. No renal parenchymal mass is identified. The urinary bladder is unremarkable. The bowel demonstrates normal course and caliber. There is no evidence of bowel obstruction. No stephen wel wall thickening is identified. The appendix is normal in appearance. There are post procedural changes from tubal ligation. There is a 4.5 x 3.4 cm left adnexal cyst. No intraperitoneal free flu id, free air or abscess identified. No retroperitoneal, mesenteric, or inguinal adenopathy is identi fied. The abdominal aorta and major branching vessels are normal in caliber. The osseous structures are u nremarkable. No significant subcutaneous soft tissue abnormality is identified. IMPRESSION: 1. No acute intra-abdominal abnormality identified. 2. Cholelithiasis. 3. Hepatic steatosis. 4. Status post tubal ligation. 5. 4.5 x 3.4 cm left adnexal cyst. RPTAT: .Tiffani Locke MD, MD Date Time Electronically viewed and signed by .Tiffani Locke MD, on 06/29/2017 05:09 .G/
--- NOTE | 2017-06-29 06:35 | RADRPT ---
PROCEDURE: XR Chest. CLINICAL INDICATION: Fever TECHNIQUE: AP Portable chest. COMPARISON: No pertinent prior examinations were submitted for comparison. FINDINGS: The cardiomediastinal silhouette is normal. The aorta is normal. No focal consolidation, pleural eff usion or pneumothorax is seen. The osseous structures are intact. IMPRESSION: No radiographic evidence of acute cardiopulmonary disease. Physician Jaci Date Time Electronically viewed and signed by Marielena Parikh Physician on 06/29/2017 06:35 CS/
[2017-06-29] MEDS ORDERED: morphine 10 MG INJ IV ONE (09:00)
[2017-06-29] MEDS ORDERED: DOCUSATE SODIUM 100 MG CAP PO PRN (10:00)
[2017-06-29] MEDS ORDERED: ONDANSETRON 4 MG INJ IV PRN (10:00)
[2017-06-29] MEDS ORDERED: NACL 0.9% 3 ML SYG IV SCH (10:00)
[2017-06-29] MEDS ORDERED: BISACODYL (EC) 5 MG TAB PO PRN (10:00)
[2017-06-29] MEDS ORDERED: BISMUTH SUBSALICYLATE 120 ML BTL PO PRN (10:00)
[2017-06-29] MEDS ORDERED: MAGNESIUM HYDROXIDE 30ML CUP PO PRN (10:00)
[2017-06-29] MEDS ORDERED: IBUPROFEN 600 MG TAB PO PRN (10:00)
[2017-06-29] MEDS ORDERED: HYDROCODONE/APAP (10/325) TAB PO PRN (10:00)
[2017-06-29] MEDS ORDERED: ONDANSETRON (ODT) 4 MG TAB ODT PRN (10:00)
[2017-06-29] MEDS ORDERED: ACETAMINOPHEN 325 MG TAB PO PRN (10:00)
--- NOTE | 2017-06-29 10:07 | HP ---
Date/Time of Note Date/Time of Note DATE: 06/29/17 TIME: 09:47 Assessment/Plan VTE Prophylaxis VTE Prophylaxis Intervention: SCD's Assessment/Plan Assessment/Plan 46 yo F with obesity, gallstones presenting with RUQ and L leg/back pain. Suspect RUQ pain 2/2 biliary colic. No radiographic evidence of biliary tree obstruction/compromise at this time. L leg/back pain clinically consistent with sciatica. #RUQ pain 2/2 biliary colic: -pain control -spoke to general surgery/Dr Rodriguez who advised outpatient follow up with [facility] team as scheduled #L sided sciatica -PT eval -plain films likely dc in AM if pain control achieved HPI/ROS Admit Date/Time Admit Date/Time Hx of Present Illness CC L leg pain, R back pain HPI 46 yo F with pmhx obesity, gallstones presents with c/o 2 days of acute on chronic RUQ pain and several days of L sided low back pain radiating into her L leg. Regarding the RUQ pain, pt states it's been present for a year. Indeed she has been seen at this ER multiple times and diagnosed with biliary colic/ symptomatic gallstones. Pt saw a general surgeon in [place] who advised cholecystectomy, however as pt has a "narrow trachea" she was advised to have her procedure done at [facility]. Her consultation with the team at [facility] was supposed to be today. Pt reports nausea, vomiting, diarrhea, constipation, and a low grade fever over the past 2 days. Pt also reports that she's been having pain in her L low back radiating into her L leg. Also has episodes occasionally where she gets transient numbness of her L leg. Does not endorse compromise of bowel or bladder control. Denies dysuria or hematuria PMH/Family/Social Past Medical History gallstones, obesity Social History lives in the community Smoking Status: Never smoker Exam/Review of Systems Vital Signs Vitals Vital Signs Date Time Temp Pulse Resp B/P Pulse Ox O2 Delivery O2 Flow Rate FiO2 06/29/17 09:00 98.3 77 20 132/74 98 Room Air Exam Exam nad, laying in bed MMM EOMI no mrg lungs clear abd ttp in RUQ, no rebound or guarding +ttp R posterior rib cage 5/5 strength bl LEs though AROM LLE limited 2/2 pain ++straight leg raise on L several broken blisters noted on bottoms of bl feet, +fungal toenails labs and imaging reviewed. WBCs elevated but no L shift. abd imaging with gallstones but no cholecystitis or choledocholithiasis Labs Result Diagram: 06/29/17 0355 06/29/17 0355 Medications Medications Current Medications Bismuth Subsalicylate (Pepto-Bismol) 30 ml Q6H PRN PO PAIN; Start 06/29/17 at 10:00; Status UNV Cyclobenzaprine HCl (Flexeril) 5 mg QHS PO ; Start 06/29/17 at 21:00; Status UNV Dicyclomine HCl (Bentyl) 20 mg QID PO ; Start 06/29/17 at 13:00; Status UNV Acetaminophen/ Hydrocodone Bitart ([place] (10/325)) 1 tab Q6H PRN PO PAIN; Start 06/29/17 at 10:00; Status UNV Ibuprofen (Motrin) 600 mg Q6H PRN PO PAIN AND OR ELEVATED TEMP; Start 06/29/17 at 10:00; Status UNV Ondansetron HCl (Zofran Odt) 4 mg Q6H PRN ODT NAUSEA AND/OR VOMITING; Start at 10:00; Status UNV Ondansetron HCl (Zofran Inj) 4 mg Q6H PRN IV NAUSEA AND/OR VOMITING; Start at 10:00; Status UNV Docusate Sodium (Colace) 100 mg Q12H PRN PO CONSTIPATION; Start 06/29/17 at 10: 00; Status UNV Magnesium Hydroxide (Milk Of Mag) 30 ml DAILY PRN PO CONSTIPATION; Start at 10:00; Status UNV Bisacodyl (Dulcolax) 5 mg DAILY PRN PO CONSTIPATION; Start 06/29/17 at 10:00; Status UNV Enoxaparin Sodium (Lovenox) 40 mg DAILY SC ; Start 06/30/17 at 09:00; Status UNV ANTHONY GARIBAY MD Jun 29, 2017 09:58
[2017-06-29 10:10] VITALS: TEMP 98.3
[2017-06-29 10:45] VITALS: BP 123/74; PULSE 77; RESP 18
--- NOTE | 2017-06-29 10:53 | RADRPT ---
PROCEDURE: XR lumbar spine CLINICAL INDICATION: Back pain TECHNIQUE: 5 views of the lumbar spine obtained COMPARISON: None available FINDINGS: No fracture is identified. Vertebral bodies are maintained in height. There is preservation of the l ordosis of the lumbar spine. There is trace anterolisthesis at L3-4. There are mild anterior osteoph ytes seen at L2-3, L3-4. Intervertebral discs spaces are maintained in height. Facet arthropathy is seen at the L3-4 through L5-S1 levels. Tubal control implants and contrast in the urinary blad kathy are noted. IMPRESSION: Lumbar spondylosis/degenerative enthesopathy with minimal anterolisthesis at L3-4 as described above . RPTAT: VV .Peter Donis MD, MD Date Time Electronically viewed and signed by .Peter Donis MD, on 06/29/2017 10:53 .O/
[2017-06-29 10:55] VITALS: Ht 152.4 cm; Wt 96.5 kg
[2017-06-29 14:52] VITALS: BP 109/59; RESP 18
[2017-06-29] MEDS: KETOROLAC 30 MG INJ IV PRN ×2 (14:53→21:12)
[2017-06-29] MEDS: DICYCLOMINE 10 MG CAP PO SCH ×3 (14:59→21:11)
[2017-06-29 19:48] VITALS: BP 109/59; RESP 20
[2017-06-29] MEDS ORDERED: CYCLOBENZAPRINE 10 MG TAB PO SCH (21:00)
[2017-06-30 02:04] VITALS: BP 116/65; RESP 20
[2017-06-30 06:29] LABS: BASOPHIL # 0.1 10^3/ul (0.0-0.1); BASOPHILS % 1.1 % (0.0-2.0); EOSINOPHILS # 0.2 10^3/ul (0.0-0.5); HEMATOCRIT 33.5 % (37.0-47.0); HEMOGLOBIN 9.8 g/dl (12.0-16.0); LYMPHOCYTES # 2.6 10^3/ul (0.8-2.9); MEAN CORPUSCULAR HEMOGLOBIN 23.1 pg (29.0-33.0); MEAN CORPUSCULAR HGB CONC 29.3 g/dl (32.0-37.0); MEAN PLATELET VOLUME 10.4 fl (7.4-10.4); MONOCYTE # 0.7 10^3/ul (0.3-0.9); MONOCYTES % 8.6 % (0.0-11.0); NEUTROPHIL # 4.1 10^3/ul (1.6-7.5); PLATELET COUNT 366 10^3/UL (140-415); RED BLOOD COUNT 4.24 10^6/ul (4.20-5.40); WHITE BLOOD COUNT 7.6 10^3/ul (4.8-10.8)
[2017-06-30] MEDS: KETOROLAC 30 MG INJ IV PRN (07:07)
[2017-06-30 07:13] LABS: ALBUMIN 3.5 g/dl (3.3-4.9); ALBUMIN/GLOBULIN RATIO 1.12; BILIRUBIN,INDIRECT 0.1 mg/dl (0-1.1); BILIRUBIN,TOTAL 0.1 mg/dl (0.2-1.3); CREATININE 0.55 mg/dl (0.44-1.00); POTASSIUM 4.2 mmol/L (3.5-5.1); TOTAL PROTEIN 6.6 g/dl (6.1-8.1)
[2017-06-30 07:15] VITALS: BP 127/60; RESP 18
[2017-06-30] MEDS: DICYCLOMINE 10 MG CAP PO SCH ×2 (08:37→12:16)
[2017-06-30] MEDS ORDERED: ENOXAPARIN 40 MG/0.4 ML SYG SC SCH (09:00)
[2017-06-30] MEDS ORDERED: DULOXETINE 30 MG CAP DR PO SCH (09:00)
--- NOTE | 2017-06-30 12:09 | PDOCDIS ---
Discharge Instructions CONDITION Patient Condition: Good HOME CARE INSTRUCTIONS: Special Diet: low chol low fat KARINA MASCORRO MD Jun 30, 2017 12:09
[2017-06-30 14:14] VITALS: BP 112/56; RESP 18
[2017-06-30] MEDS ORDERED: HYDROCODONE/APAP (5/325) TAB PO ONE (15:00)
--- NOTE | 2017-06-30 21:59 | DS ---
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 FINAL DIAGNOSES: 1. Right upper quadrant pain with biliary colic. At this time, he is asymptomatic. General surgery was consulted. As per General surgery, patient is to follow up as outpatient at [facility]. Surgery team, was scheduled. 2. Left-sided sciatica. 3. Right foot pain. 4. Morbid obesity. 5. Leukocytosis, resolved. 6. Microcytic anemia. MEDICATIONS: 1. Fioricet. 2. Tylenol. 3. Cyclobenzaprine. 4. Bentyl. 5. Foster. 6. Nystatin. 7. Zofran. ALLERGY: No known drug allergies. HOSPITAL COURSE: The patient is a 46-year-old female with past medical history of chronic cholelithiasis who has been followed up with [facility] Surgical team and has been set up for the elective laparoscopic versus open cholecystectomy, intractable back pain, morbid obesity, GERD, dermatitis, muscle spasm, radiculopathy of her arm, presented to the emergency room secondary to having abdominal pain with nausea without any vomiting. Upon admission, patient's WBCs was found to be 18.8. Gallbladder ultrasound demonstrated fatty infiltration of the liver, cholelithiasis without any evidence of acute cholecystitis,. General surgery was consulted. As per General surgery, after evaluation of the ultrasound and CT of the abdomen and pelvis, which showed no acute intercranial abdominal abnormality identified, cholelithiasis, hepatic steatosis, status post tubal ligation and the patient's LFT was found to be within normal limits. At this time, no surgical intervention was indicated. The patient is being followed up by the surgical team at [facility] and due to this at this time, the patient is cleared to be discharged home with follow up with the Surgical team at [facility] for a scheduled appointment and treatment as per their recommendation. At this time, the patient is asymptomatic without any chest pain. Her WBCs within normal limits at 7.6, hemoglobin 9.9, hematocrit 33.5, MCV 79, platelets 366. Sodium 138, potassium 4.2, chloride 107, bicarb 27, BUN 9, creatinine 0.55, glucose 83, lactic acid 1.4. LFTs are within normal limits. Alk phos of 145. DISCHARGE CONDITION: Stable. Dictated By: Jared Yang MD /rafi/kayla /Document#: [id number]
== END 2017-06-30 16:00 | disposition home or self-care (01) | DRG 445 ==
LOC: FTE 23:33 → MS2 06-29 08:26
PROVIDERS: ADMIT Internal Medicine; ATTEND Internal Medicine
DX: K80.50 Calculus of bile duct without cholangitis or cholecystitis without obstruction (principal); Z68.41 Body mass index [BMI] 40.0-44.9, adult; K76.0 Fatty (change of) liver, not elsewhere classified; M54.32 Sciatica, left side; M79.671 Pain in right foot; E66.01 Morbid (severe) obesity due to excess calories; D72.829 Elevated white blood cell count, unspecified; D64.9 Anemia, unspecified
CPT/HCPCS: 36415; 71010; 72110; 74177; 76705; 80053; 81001; 83605; 83690; 84703; 85025; 87040; 87400; 96374; 96375; 96376; 97162; J1650; J1885; J2270; J2405; J7030; Q9967

== ENCOUNTER 2017-10-31 20:53 | Emergency (ER) | END 2017-11-01 00:39 | disposition home or self-care (01) ==

== ENCOUNTER 2017-11-04 09:17 | Emergency (ER) | END 2017-11-04 13:39 | disposition home or self-care (01) ==

== ENCOUNTER 2018-01-12 16:30 | Emergency (ER) | END 2018-01-12 21:50 | disposition home or self-care (01) ==

== ENCOUNTER 2018-04-07 20:09 | Emergency (ER) | END 2018-04-08 05:10 | disposition home or self-care (01) ==

== ENCOUNTER 2018-07-03 18:10 | Emergency (ER) | END 2018-07-03 20:25 | disposition home or self-care (01) ==

== ENCOUNTER 2019-03-01 09:39 | Emergency (ER) | payer MEDICAID ==
[~2019-03-01] VITALS: Ht 157.5 cm; Wt 90.9 kg
[~2019-03-01 09:39] MED LIST changes: -BISM262O23 PO; +CEPH-443 PO; +CEPH500C PO; +DICY10CA40 PO; -DICY10CA60 PO; +DOXY100C42 PO; +HYDR-4011 PO; -HYDR-902 PO; -HYDR-906 PO; -IBUP400T22 PO; +NAPR-688 PO; -NYST15CR16 TOP; +NYST15CR36 TOP; +RANI150T35 PO; +SULF1TAB31 PO
[2019-03-01 09:58] VITALS: BP 132/59; PULSE 98; RESP 18; Ht 157.5 cm; Wt 90.9 kg
[2019-03-01] MEDS ORDERED: KETOROLAC 60 MG INJ IM STA (10:33)
[2019-03-01] MEDS ORDERED: HYDR-4011 PO (10:34)
[2019-03-01] MEDS ORDERED: NAPR-985 PO (10:34)
[2019-03-01] MEDS ORDERED: MED4DP PO (10:34)
--- NOTE | 2019-03-01 10:59 | ERD ---
ER Documentation Chief Complaint Chief Complaint RIGHT ARM PAIN/INJURY HPI 48-year-old female presenting with pain to her right hand. Patient states that she uses work with small repetitive motions of her right hand and she has some burning numbness down her arm. She denies any recent traumatic injuries. Denies any cold sensations. Has normal range of motion of her hand however has sharp stabbing pains. Has not taken medications today. Denies other medical problems. NKDA. Surgical history denies. Social history denies ROS All systems reviewed and are negative except as per history of present illness. Medications Home Meds Active Scripts Naproxen* (Naprosyn*) 500 Mg Tablet, 500 MG PO BID PRN for PAIN AND/OR INFLAMMATION, #30 TAB Prov:IVANA CANAS PA-C 03/01/19 Hydrocodone/Acetaminophen ([place] 5-325 Tablet) 1 Each Tablet, 1 TAB PO Q6H PRN for PAIN, #7 TAB Prov:IVANA CANAS PA-C 03/01/19 Methylprednisolone* (Medrol* DOSE PACK) 4 Mg/Dose-Pack Tab.ds.pk, 4 MG PO . DIRECTED, #1 PACKET Prov:IVANA CANAS PA-C 03/01/19 Doxycycline Monohydrate (Doxycycline Monohydrate) 100 Mg Capsule, 100 MG PO BID for 7 Days, CAP Prov:TRUPTI BHAKTA MD 07/03/18 Ibuprofen* (Motrin*) 600 Mg Tab, 600 MG PO Q6, #15 TAB Prov:TRUPTI BHAKTA MD 07/03/18 Naproxen* (Naproxen*) 500 Mg Tablet, 500 MG PO BID PRN for PAIN, #20 TAB Prov:FELICE DE LA FUENTE DO 04/08/18 Cephalexin* (Keflex*) 500 Mg Capsule, 500 MG PO Q8, #9 CAP Prov:FELICE DE LA FUENTE DO 04/08/18 Ranitidine Hcl* (Zantac*) 150 Mg Tablet, 150 MG PO BID, #60 TAB Prov:GREENFELICE DO 04/08/18 Ondansetron (Ondansetron Odt) 4 Mg Tab.rapdis, 4 MG PO Q6H PRN for NAUSEA AND/OR VOMITING, #10 TAB Prov:SHEA BOBO PA-C 01/12/18 Cephalexin* (Keflex*) 500 Mg Capsule, 500 MG PO QID for 5 Days, #20 CAP Prov:SHEA BOBO PA-C 01/12/18 Ibuprofen* (Ibuprofen*) 600 Mg Tablet, 600 MG PO Q8 PRN for PAIN, #14 TAB Prov:MATT VILLASENOR MD 11/01/17 Cephalexin* (Cephalexin*) 500 Mg Capsule, 500 MG PO BID for 7 Days, #14 CAP Prov:MATT VILLASENOR MD 11/01/17 Sulfamethoxazole/Trimethoprim* (Bactrim Ds* Tablet) 1 Each Tablet, 1 TAB PO BID, #14 TAB Prov:MATT VILLASENOR MD 11/01/17 Dicyclomine HCl (Dicyclomine HCl) 10 Mg Capsule, 20 MG PO QID, #60 CAP Prov:BRYANNA MCKINLEY DO 05/12/17 Ondansetron (Ondansetron Odt) 4 Mg Tab.rapdis, 4 MG PO Q6H PRN for NAUSEA AND/OR VOMITING, #10 TAB Prov:BRYANNA MCKINLEY DO 05/12/17 Hydrocodone/Acetaminophen ([place] 5-325 Tablet) 1 Each Tablet, 1 TAB PO QHS PRN for PAIN, #14 TAB Prov:VINNY FITZGERALD PA-C 04/17/17 Acetamin/Butalbital/Caffeine* (Fioricet*) 1 Tab Tab, 1 TAB PO Q4H PRN for PAIN LEVEL 1-5, #30 TAB Prov:IVANA CANAS PA-C 05/08/16 Acetaminophen* (Tylophen*) 500 Mg Capsule, 1 CAP PO Q6H PRN for PAIN AND OR ELEVATED TEMP, #20 CAP 0 Refills Prov:ZULEMA CHRISTOPHER PA-C 12/29/15 Nystatin-Triamcinolone* (Nystatin-Triamcinolone* Cream) 15 Gm Cream.gm., 1 APPLIC TOP BID, #1 TUB Prov:CHACORTA MAYER PA-C 11/22/15 Cyclobenzaprine Hcl* (Cyclobenzaprine Hcl*) 5 Mg Tablet, 5 MG PO QHS for 10 Days, TAB Prov:TRUPTI CHRISTIANSON PA-C 08/31/15 Allergies Allergies: Coded Allergies: No Known Allergy (Unverified , 11/04/17) PMhx/Soc Medical and Surgical Hx: pt denies Medical Hx History of Surgery: Yes (x2 CS. .) Anesthesia Reaction: No Hx Neurological Disorder: No Hx Respiratory Disorders: No Hx Cardiac Disorders: No Hx Psychiatric Problems: No Hx Miscellaneous Medical Probl: No Hx Alcohol Use: No Hx Substance Use: No Hx Tobacco Use: No Smoking Status: Never smoker FmHx Family History: No diabetes, No coronary disease, No other Physical Exam Vitals Vital Signs Date Temp Pulse Resp B/P (MAP) Pulse Ox O2 O2 Flow FiO2 Time Delivery Rate 03/01/19 98.9 98 18 132/59 97 09:58 (83) Physical Exam GENERAL: The patient is well-appearing, well-nourished, in no acute distress HEENT: Atraumatic. Conjunctivae are pink. Pupils equal, round, and reactive to light. There is no scleral icterus. Tympanic membranes clear bilaterally. NECK: C-spine is soft and supple. There is no meningismus. There is no cervical lymphadenopathy. CHEST: Clear to auscultation bilaterally. There are no rales, wheezes or rhonchi. HEART: Regular rate and rhythm. No murmurs, clicks, rubs or gallops. EXTREMITIES: Equal pulses bilaterally. There is no peripheral clubbing, cyanosis or edema. No focal swelling or erythema. Full range of motion. Positive Tinel sign and Phalens test. NEUROLOGIC: Alert and oriented. Cranial nerves II through XII intact. Motor strength in all 4 extremities with 5 out of 5 strength. Sensation grossly intact. Normal speech and gait. SKIN: There is no apparent rash or petechiae. The skin is warm and dry. Results 24 hrs Laboratory Tests Test 03/01/19 10:39 POC Beta HCG, Qualitative NEGATIVE Current Medications Medications Dose Sig/Ramonita Start Time Status Last (Trade) Ordered Route PRN Stop Time Admin Dose Reason Admin Ketorolac 60 mg ONCE STAT 03/01/19 DC 03/01/19 Tromethamine IM 10:33 10:46 (Toradol) 03/01/19 10:34 Procedures/MDM ER course: Toradol given ED. MDM: 48-year-old female presenting with arm pain. I have low suspicion for tendon or ligament injury. Patient likely has nerve inflammation and possible carpal tunnel. Patient is recommended to follow-up with primary care and told to return to the ER symptoms change or worsen. I have low suspicion for acute fracture dislocation. All questions answered at discharge Departure Diagnosis: Primary Impression: Radiculopathy of arm Condition: Stable Patient Instructions: Paraesthesias Referrals: COMMUNITY CLINICS YOU HAVE RECEIVED A MEDICAL SCREENING EXAM AND THE RESULTS INDICATE THAT YOU DO NOT HAVE A CONDITION THAT REQUIRES URGENT TREATMENT IN THE EMERGENCY DEPARTMENT. FURTHER EVALUATION AND TREATMENT OF YOUR CONDITION CAN WAIT UNTIL YOU ARE SEEN IN YOUR DOCTORS OFFICE WITHIN THE NEXT 1-2 DAYS. IT IS YOUR RESPONSIBILITY TO MAKE AN APPOINTMENT FOR FOL-UP CARE. IF YOU HAVE A PRIMARY DOCTOR --you should call your primary doctor and schedule an appointment IF YOU DO NOT HAVE A PRIMARY DOCTOR YOU CAN CALL OUR PHYSICIAN REFERRAL HOTLINE AT IF YOU CAN NOT AFFORD TO SEE A PHYSICIAN YOU CAN CHOSE FROM THE FOLLOWING [facility]MERLY [facility] [address] [place] [address] [facility] [address] [facility] [address] [facility] [id number] [facility]. [facility]. [address] [facility] Hours: Mon-Fri 9:00 AM - 5:00 PM Additional Instructions: FOLLOW UP WITH YOUR PRIMARY CARE PHYSICIAN TOMORROW.Return to this facility if you are not improving as expected. IVANA CANAS PA-C March 01, 2019 10:59
== END 2019-03-01 10:52 | disposition home or self-care (01) ==
LOC: FTE 09:39
DX: M54.10 Radiculopathy, site unspecified (principal)
CPT/HCPCS: 81025; 96372; J1885; Z7502

== ENCOUNTER 2019-06-20 09:51 | Emergency (ER) | payer MEDICAID ==
[~2019-06-20] VITALS: Ht 160 cm; Wt 91.0 kg
[~2019-06-20 09:51] MED LIST changes: +MED4DP PO; +NAPR-985 PO
[2019-06-20 09:54] VITALS: BP 132/63; PULSE 92; RESP 18; Ht 160 cm; Wt 91.0 kg
[2019-06-20] MEDS ORDERED: KETOROLAC 30 MG INJ IM STA (11:03)
== END 2019-06-20 14:21 | disposition home or self-care (01) ==
LOC: FTE 09:51
DX: N93.9 Abnormal uterine and vaginal bleeding, unspecified (principal); R10.2 Pelvic and perineal pain
CPT/HCPCS: 36415; 76856; 80048; 81001; 81025; 85025; 96372; J1885; Z7502

== ENCOUNTER 2019-08-09 12:34 | Emergency (ER) | payer MEDICAID ==
[~2019-08-09] VITALS: Wt 80.0 kg
[~2019-08-09 12:34] MED LIST changes: +FER325 ORAL; +GABA300C16 ORAL; +IBUP-1544 ORAL; +MEDR10TA9 ORAL; +RANI-535 PO; -RANI150T35 PO; +TERB250T13 ORAL
[2019-08-09 22:34] VITALS: BP 106/70; PULSE 86; RESP 18
== END 2019-08-09 22:36 | disposition home or self-care (01) ==
LOC: E/R 12:34
DX: D64.9 Anemia, unspecified (principal); N92.1 Excessive and frequent menstruation with irregular cycle
CPT/HCPCS: 36430; 76830; 76856; 80053; 81001; 84703; 85025; 86850; 86900; 86901; 86920; P9016; Z7502